=== PATIENT | female | born 1975 ===

== ENCOUNTER 2018-01-03 19:33 | Emergency (ER) | payer OTHER ==
[~2018-01-03] VITALS: Ht 162.6 cm; Wt 66.0 kg
[2018-01-03 19:47] VITALS: TEMP 37.1; Ht 162.6 cm; Wt 66.0 kg
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
[2018-01-03 21:25] LABS: HEMOGLOBIN 14.4 g/dL (12.0-16.0); MEAN CELL VOLUME 91.7 fL (80-100); PLATELET COUNT 174 K/uL (130-400); RED CELL DISTRIBUTION WIDTH CV 13.4 % (11.5-14.5); RED CELL DISTRIBUTION WIDTH SD 44.4 fL (36.4-46.3); WHITE BLOOD COUNT 7.34 K/uL (4.8-10.8)
[2018-01-03] MEDS ORDERED: TRAZODONE HCL 100 MG TAB PO STA (21:41)
[2018-01-03 21:58] LABS: ALBUMIN 3.7 gm/dl (3.4-5.0); CALCIUM 8.9 mg/dl (8.5-10.1); CREATININE 1.11 mg/dl (0.60-1.20); POTASSIUM 3.5 mmol/L (3.5-5.1); TOTAL PROTEIN 7.3 gm/dl (6.4-8.2)
[2018-01-03 23:45] VITALS: BP 104/69; PULSE 115; O2SAT 94
== END 2018-01-03 23:46 | disposition home or self-care (01) ==
LOC: EDBD 19:33 → C.EDA 19:35 → EDBD 19:35 → C.EDA 23:46
DX: F10.10 Alcohol abuse, uncomplicated (principal); Y90.7 Blood alcohol level of 200-239 mg/100 ml; F12.10 Cannabis abuse, uncomplicated; R41.0 Disorientation, unspecified; Z87.891 Personal history of nicotine dependence; Z86.59 Personal history of other mental and behavioral disorders